=== PATIENT | male | born 1985 | race Caucasian/White ===

== ENCOUNTER 2019-10-01 16:28 | Emergency (ER) | payer OTHER, SELFPAY ==
[2019-10-01 16:40] VITALS: BP 140/88; PULSE 83; RESP 20; TEMP 37; O2SAT 98
--- NOTE | 2019-10-01 16:44 | ED.UPPEXIN ---
HPI - Extremity Injury (Upper) General Chief Complaint: Extremity Injury, Upper Stated Complaint: Shoulder pain Time Seen by Provider: 10/01/19 16:44 Source: patient and RN notes reviewed History of Present Illness HPI narrative: Patient is a 34-year-old male who presents the urgent care with complaints of left shoulder pain. Patient states that it started today after doing a lot of heavy lifting during his shoulder workout. Patient states that he presses approximately 100 pound barbells. Patient was also doing shoulder poles. Patient denies of any popping or clicking to the shoulder. States that he has taken some ibuprofen today. No other acute complaints. No acute distress noted. Patient read the plan of care. Related Data Allergies Allergy/AdvReac Type Severity Reaction Status Date / Time sulfamethoxazole Allergy Mild Hives Verified 10/01/19 16:36 trimethoprim Allergy Mild Hives Verified 10/01/19 16:36 Sulfa (Sulfonamide Allergy Unknown Hives Verified 10/01/19 16:36 Antibiotics) sulfamethizole Allergy Unknown Skin Verified 02/22/17 21:20 Reaction Review of Systems Review of Systems: Narrative: CONSTITUTIONAL: Denies fever, chills, or sweats. EYES: Denies visual changes, redness, or discharge. ENT: Denies rhinorrhea, congestion, sore throat, or otalgia. CARDIOVASCULAR: Denies chest pain, palpitations, or edema. RESPIRATORY: Denies cough or dyspnea. GASTROINTESTINAL: Denies abdominal pain, nausea, vomiting, or diarrhea. GENITOURINARY: Denies dysuria or hematuria. SKIN: Denies rash or itching. MUSCULOSKELETAL: Left shoulder pain NEUROLOGIC: Denies headache, numbness, or weakness. All other systems reviewed are negative, except as documented in HPI. [facility] Family History Family History (Updated 12/18/17 @ 13:38 by DOCTOR UNKNOWN) Grandparent Hypertension Family history of cardiovascular disease Social History Social History Smoking status: Light tobacco smoker Alcohol intake: current Comments At the time of my signature, I reviewed and agree with the nursing past medical, surgical, social, and family history. There is no relevant family history pertinent to the patient complaint. Exam Narrative: Exam Narrative: GENERAL: This is a well-nourished, well-developed patient, in no apparent distress. HEAD: normocephalic, atraumatic. EYES: PERRL. Sclera clear/white. Vision is grossly intact. EARS: External ears normal NOSE: External nose normal with no obvious nasal discharge, nares without redness, no rhinorrhea. THROAT: Mucous membranes moist NECK: Neck supple SKIN: warm, intact with no suspicious lesions or rash, good texture and turgor. NEURO: awake, alert, and oriented to person, place and time. There were no obvious focal neurologic abnormalities. EXTREMITIES: No obvious dislocation to the left shoulder. Range of motion within normal limits. Very mild anterior joint tenderness to the left shoulder. No edema or ecchymosis noted. Positive strong left radial pulse with capillary refill less than 2 seconds. Course Vital Signs Vital signs: Vital Signs Temperature 98.6 F 10/01/19 16:40 Pulse Rate 83 10/01/19 16:40 Respiratory Rate 20 10/01/19 16:40 Blood Pressure 140/88 10/01/19 16:40 Pulse Oximetry 98 10/01/19 16:40 Temperature 98.6 F 10/01/19 16:40 Pulse Rate 83 10/01/19 16:40 Respiratory Rate 20 10/01/19 16:40 Blood Pressure 140/88 10/01/19 16:40 Pulse Oximetry 98 10/01/19 16:40 Reviewed MDM - Extremity Injury (Upper) MDM Narrative Medical decision making narrative: Advised the patient to complete steroid regimen as prescribed. Make sure to eat and drink with medication. Avoid lifting anything over a gallon jug for the next 5 to 7 days until activity as tolerated as normal. Strenuous lifting over the head will exacerbate the pain. Use ibuprofen/Tylenol as needed for pain. Be expected to experience some discomfort over the next week. However, if
== END 2019-10-01 16:56 | disposition home or self-care (01) ==
PROVIDERS: Emergency Provider Nurse Practitioner Family
DX: M77.9 Enthesopathy, unspecified (principal); F17.200 Nicotine dependence, unspecified, uncomplicated
CPT/HCPCS: 99203; G0463

== ENCOUNTER 2021-10-05 17:00 | Emergency (ER) | payer OTHER, SELFPAY ==
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
[2021-10-05 17:09] VITALS: BP 134/88; PULSE 90; RESP 16; TEMP 37.1; O2SAT 99
== END 2021-10-05 17:34 | disposition home or self-care (01) ==
PROVIDERS: Emergency Provider Nurse Practitioner Family; PCP Physician Assistant
DX: T21.22XA Burn of second degree of abdominal wall, initial encounter (principal); T24.211A Burn of second degree of right thigh, initial encounter; X10.0XXA Contact with hot drinks, initial encounter; Z87.891 Personal history of nicotine dependence
CPT/HCPCS: 99212; G0463